=== PATIENT | male | born 1995 | race Caucasian/White ===

== ENCOUNTER → 2018-03-08 | Outpatient (CLI) | payer OTHER ==
[~2018-03-08] MED LIST: ACHD5005 PO; KETO-22 PO; MULT1CAP27 PO
== END ==
LOC: CARD 12:53
PROVIDERS: ATTEND Physician Assistant
DX: R07.9 Chest pain, unspecified (principal); Q23.1 Congenital insufficiency of aortic valve; Q25.6 Stenosis of pulmonary artery; R06.00 Dyspnea, unspecified; I08.0 Rheumatic disorders of both mitral and aortic valves
CPT/HCPCS: 93306

== ENCOUNTER → 2018-04-13 | Outpatient (CLI) | payer OTHER ==
[2018-04-13 16:23] VITALS: BP 136/58
--- NOTE | 2018-04-13 16:24 | Cardiology Stress Test Report ---
Stress Test Report Date of Procedure/Referring: Date of Procedure: Apr 13, 2018 PCP Krissy Cruz Admitting Physician Constanza Sunshine MD Baseline Heart Rate: 51 Baseline Blood Pressure: Blood Pressure Systolic: 136 Blood Pressure Diastolic: 58 Baseline EKG: Baseline EKG: sinus bradycardia, no abnormality Summary/Conclusion: Summary: In summary, the patient started exercising with a baseline heart rate, blood pressure and EKG mentioned above Patient was able to exercise for a total of 10:30 minutes on Gio protocol, 12.1 METs Maximum heart rate 177 Maximum blood pressure 158/74 Stress EKG no changes suggestive of ischemia Recovery EKG Return to baseline Conclusion: 1. Good exercise tolerance for a total of 10:30 minutes on Gio protocol, 12.1 METs, achieving 90 percent of maximum expected heart rate 2. Negative stress test by EKG for ischemia 3. No arrhythmia was noted NORA REINA MD Apr 13, 2018 16:23
== END ==
LOC: CARD 13:38
PROVIDERS: ATTEND Physician Assistant
DX: R07.9 Chest pain, unspecified (principal); Q23.1 Congenital insufficiency of aortic valve; Q25.6 Stenosis of pulmonary artery; R06.00 Dyspnea, unspecified
CPT/HCPCS: 93017

== ENCOUNTER → 2020-07-15 | Outpatient (CLI) | payer OTHER ==
--- NOTE | 2020-07-15 09:35 | Diagnostic Imaging Report ---
PROCEDURE: US Gallbladder. TECHNIQUE: Multiple real-time grayscale images were obtained over the right upper quadrant in various projections. INDICATION: Abdominal pain. FINDINGS: The liver is at the upper limits of normal in size at 18 cm. No discrete liver mass is identified. The portal vein is patent and shows normal direction of flow. The gallbladder is without stones or sludge. No wall thickening or biliary ductal dilatation is seen. Pancreas is unremarkable. Aorta is nonaneurysmal. The right kidney demonstrates normal cortical thickness and echogenicity. No calculi or hydronephrosis is detected. There is no ascites. IMPRESSION: Unremarkable gallbladder ultrasound. There is no evidence of cholelithiasis or acute cholecystitis. Dictated by: Dictated on workstation # [id number]
== END ==
LOC: RAD 07:30
PROVIDERS: ATTEND Nurse Practitioner Family
DX: R10.9 Unspecified abdominal pain (principal)
CPT/HCPCS: 76705

== ENCOUNTER 2020-09-03 11:42 | Outpatient (RCR) | payer OTHER ==
[2020-09-03 12:24] LABS: BASOPHILS % (AUTO) 0 % (0-10); EOSINOPHILS # (AUTO) 0.1 10^3/uL (0.0-0.3); EOSINOPHILS % (AUTO) 1 % (0-10); HEMATOCRIT 47 % (40-54); HEMOGLOBIN 15.4 g/dL (13.3-17.7); LYMPHOCYTES # (AUTO) 0.7 10^3/uL (1.0-4.0); LYMPHOCYTES % (AUTO) 7 % (12-44); MEAN CORPUSCULAR HEMOGLOBIN 30 pg (25-34); MEAN CORPUSCULAR HGB CONC 33 g/dL (32-36); MEAN CORPUSCULAR VOLUME 93 fL (80-99); MEAN PLATELET VOLUME 9.6 fL (9.0-12.2); MONOCYTES # (AUTO) 0.8 10^3/uL (0.0-1.0); MONOCYTES % (AUTO) 8 % (0-12); NEUTROPHILS # (AUTO) 8.7 10^3/uL (1.8-7.8); NEUTROPHILS % (AUTO) 84 % (42-75); PLATELET COUNT 215 10^3/uL (130-400); WHITE BLOOD COUNT 10.3 10^3/uL (4.3-11.0)
[2020-09-03 12:38] LABS: ALANINE AMINOTRANSFERASE 21 U/L (0-55); ALBUMIN 4.6 GM/DL (3.2-4.5); ALKALINE PHOSPHATASE 70 U/L (40-136); BILIRUBIN,TOTAL 0.7 MG/DL (0.1-1.0); BUN/CREATININE RATIO 13; CALCIUM 9.6 MG/DL (8.5-10.1); CARBON DIOXIDE 29 MMOL/L (21-32); CHLORIDE 103 MMOL/L (98-107); CHOLESTEROL 160 MG/DL (< 200); CREATININE SERUM 0.98 MG/DL (0.60-1.30); GFR ESTIMATED > 60; GLUCOSE 98 MG/DL (70-105); HDL CHOLESTEROL 64 MG/DL (40-60); PHOSPHORUS 4.2 MG/DL (2.3-4.7); POTASSIUM 4.4 MMOL/L (3.6-5.0); SODIUM 140 MMOL/L (135-145); TOTAL PROTEIN 7.1 GM/DL (6.4-8.2); TRIGLYCERIDES 69 MG/DL (<150); VLDL CHOLESTEROL 14 MG/DL (5-40)
[2020-09-03 12:59] LABS: FREE T4 (FREE THYROXINE) 1.06 NG/DL (0.70-1.48)
[2020-09-03 14:13] LABS: BAND NEUTROPHILS 2 %; BASOPHILS % (MANUAL) 0 %; EOSINOPHILS % (MANUAL) 1 %; LYMPHOCYTES % (MANUAL) 6 %; MONOCYTES % (MANUAL) 6 %; NEUTROPHILS % (MANUAL) 85 %; RBC MORPH NORMAL
== END 2020-12-02 | disposition home or self-care (01) ==
LOC: CARD 11:42
PROVIDERS: ATTEND Nurse Practitioner Family
DX: R55 Syncope and collapse (principal); Z82.49 Family history of ischemic heart disease and other diseases of the circulatory system
CPT/HCPCS: 36415; 80053; 80061; 83735; 84100; 84439; 84443; 85007; 85027; 93005; 93225; 93226

== ENCOUNTER → 2020-09-09 | Outpatient (CLI) | payer OTHER | LOC: CARD 08:30 | PROVIDERS: ATTEND Nurse Practitioner Family | DX: I35.1 Nonrheumatic aortic (valve) insufficiency (principal); R55 Syncope and collapse; Z87.74 Personal history of (corrected) congenital malformations of heart and circulatory system; Z82.49 Family history of ischemic heart disease and other diseases of the circulatory system | CPT/HCPCS: 93306 ==

== ENCOUNTER → 2020-09-23 | Outpatient (CLI) | payer OTHER ==
[~2020-09-23] MED LIST changes: +GADOBUTROL 10 MMOL/10 ML (GADAVIST) VIAL IV ONE
--- NOTE | 2020-09-23 14:10 | Diagnostic Imaging Report ---
PROCEDURE: MR imaging of the brain with and without contrast. TECHNIQUE: Multiplanar, multisequence MR imaging of the brain was performed with and without contrast. INDICATION: Syncopal episodes. COMPARISON: No prior studies are available for comparison. FINDINGS: The ventricles and sulci are within normal limits. No sulcal effacement or midline shift is identified. No acute intra-axial or extra-axial hemorrhage is detected. No white matter changes are seen. The normal expected flow-voids within the carotid siphons are identified. There is no diffusion restriction to suggest acute ischemia. No abnormal enhancement following contrast administration is identified. The corpus callosum is unremarkable. The sella and parasellar structures are unremarkable. There does appear to be significant mucosal thickening and near-complete opacification of the right maxillary sinus. There is mucosal thickening of the left maxillary sinus. There is mucosal thickening of the right-sided ethmoid air cells. IMPRESSION: 1. Essentially unremarkable MRI of the brain with and without IV contrast. No acute intracranial process is detected. 2. Paranasal sinus mucosal disease. Dictated by: Dictated on workstation # [id number]
== END ==
LOC: RAD 10:44
PROVIDERS: ATTEND Nurse Practitioner Family
DX: R55 Syncope and collapse (principal); J34.9 Unspecified disorder of nose and nasal sinuses
CPT/HCPCS: 70553

== ENCOUNTER 2022-08-26 05:32 | Outpatient (CLI) | payer OTHER ==
[~2022-08-26] VITALS: Ht 182.9 cm; Wt 84.1 kg
[~2022-08-26 05:32] MED LIST changes: -GADOBUTROL 10 MMOL/10 ML (GADAVIST) VIAL IV ONE
[2022-08-26] MEDS ORDERED: HYDR-700 PO (10:21)
[2022-08-26] MEDS ORDERED: CETI10TA17 PO (10:21)
[2022-08-26] MEDS ORDERED: LISI20TA26 PO (10:21)
[2022-08-26] MEDS ORDERED: NF-ALLE180 PO (10:21)
[2022-08-26] MEDS ORDERED: PANT40TA52 PO (10:21)
[2022-08-27] MEDS ORDERED: OMEP20CA18 PO (08:27)
[2022-08-27] MEDS ORDERED: LACT1CAP74 PO (08:36)
== END 2022-08-27 08:41 | disposition home or self-care (01) ==
LOC: PREOP 05:32
PROVIDERS: ATTEND Orthopaedic Surgery
DX: Z01.818 Encounter for other preprocedural examination (principal)